=== PATIENT | male | born 1970 | race Caucasian/White ===

== ENCOUNTER 2025-07-11 14:17 | Emergency (ER) | payer OTHER ==
[2025-07-11] MEDS ORDERED: Lidocaine 1% w/Epinephrine 1:100K 20 ML VIAL ONE (15:09)
[2025-07-11] MEDS ORDERED: Bacitracin 1 PK ONE (15:54)
== END 2025-07-11 16:15 | disposition home or self-care (01) ==
LOC: MADERS 14:17
DX: S81.012A Laceration without foreign body, left knee, initial encounter (principal); F17.210 Nicotine dependence, cigarettes, uncomplicated; Z23 Encounter for immunization; W29.3XXA Contact with powered garden and outdoor hand tools and machinery, initial encounter
CPT/HCPCS: 12002; 90471; 90715